=== PATIENT | female | born 1970 | race Caucasian/White ===

== ENCOUNTER 2017-11-19 09:56 | Emergency (ER) | payer OTHER, MEDICAID, SELFPAY ==
[2017-11-19 10:11] VITALS: BP 138/80; PULSE 93; RESP 18; TEMP 37.2; O2SAT 100; BMI 26.2
--- NOTE | 2017-11-19 11:51 | DI.CT.S_ITS ---
PROCEDURE: CT KIDNEY URETER BLADDER (KUB) INDICATIONS: left flank pain TECHNIQUE: Noncontrast 5 mm thick sections acquired from the diaphragms to the symphysis. 5 mm thick coronal and sagittal reformats were then performed. For radiation dose reduction, the following was used: automated exposure control, adjustment of mA and/or kV according to patient size. COMPARISON: None. FINDINGS: Image quality: Excellent. Lung bases: Lung bases are clear. Heart size is normal. Urinary system: Both kidneys are normal in size. No kidney stones. No hydronephrosis or perinephric fat stranding. Both ureters appear non-dilated throughout their expected courses. Bladder wall thickness is normal; no calcified bladder stones. There are scattered surgical clips seen in the pelvis Other solid organs: Liver is normal in size. Gallbladder negative. Pancreas is normal in contours. Spleen is normal in size. No adrenal nodules. Peritoneum and bowel: Unenhanced bowel loops demonstrate normal wall thickness and caliber. No free fluid or air. Appendix is likely surgically absent and there are clips in the right lower quadrant. Nodes and vessels: No retroperitoneal or mesenteric adenopathy by size criteria. Aorta and inferior vena cava are normal in caliber. Abdominal wall: No ventral hernias. Pelvis: No free pelvic fluid. There is poorly defined fullness and possible intraluminal fluid seen within the lower uterine segment or vaginal vault. Please correlate clinically and if needed pelvic ultrasound could be performed. No inguinal hernias or adenopathy. Bones: No suspicious bony lesions. No vertebral body compression fractures. Lower lumbar facet arthropathy. IMPRESSION: No urolithiasis. No evidence of urinary obstruction. Fullness and prominent fluid is seen within the vaginal vault and/or lower uterine segment. Please correlate clinically. If clinically warranted, a pelvic ultrasound could be performed for further assessment No acute abnormality. Dictated by: Yung Gallegos M.D. on 11/19/2017 at 12:11 Approved by: Yung Gallegos M.D. on 11/19/2017 at 12:20
--- NOTE | 2017-11-19 11:53 | ED.FEMALEGU ---
HPI - Female Genitourinary General Chief complaint: Urogenital-Female Stated complaint: KIDNEY INFECTION Time Seen by Provider: 11/19/17 11:44 Source: patient Mode of arrival: ambulatory Limitations: no limitations History of Present Illness HPI Narrative: Patient is a 47-year-old female who presents with all left flank pain. It started last evening and today progressing around to the abdomen. It comes in waves she feels nauseated. She had a kidney stone about 15 years ago this feels similar. She denies any fever or chills. She does have some urinary issues of the last 2 weeks including urinary retention. But she denies any painful or frequent urination MD Complaint: other (Flank pain) Related Data Home Medications Medication Instructions Recorded Confirmed hydrochlorothiazide 25 mg PO QDAY #0 08/24/16 pantoprazole PO QDAY #0 08/24/16 cyclobenzaprine 5 mg PO PRN PRN #0 06/10/17 Previous Rx's Medication Instructions Recorded ciprofloxacin HCl [Cipro] 250 mg PO BID #6 tab 06/10/17 fluconazole [Diflucan] 150 mg PO QDAY #1 tab 06/10/17 Allergies Allergy/AdvReac Type Severity Reaction Status Date / Time Penicillins [PENICILLINS] Allergy Unknown Verified 11/19/17 10:15 Sulfa (Sulfonamide Allergy Unknown Verified 11/19/17 10:15 Antibiotics) [SULFA (SULFONAMIDE ANTIBIOTICS)] Review of Systems Review of Systems GENERAL: Denies chills, fatigue, malaise, fever, sweats, travel HEENT: Denies sinus pain, ear pain, sore throat, difficulty swallowing, neck pain RESPIRATORY: Denies dyspnea, cough, wheezing, hemoptysis, sputum. CARDIOVASCULAR: Denies chest pain, palpitations, orthopnea, edema GASTROINTESTINAL: Denies nausea, vomiting, abdominal pain, diarrhea, constipation, melena. : See HPI MUSCULOSKELETAL: Denies weakness, joint pain, or bony pain SKIN: No rash, no erythema, no pruritus NEUROLOGIC: Denies weakness, dizziness, headache, numbness, change in speech, confusion PSYCHIATRIC: No concerning psychosocial issues. 12 point review of systems is negative except for those stated above and HPI PFSH Medical History Kidney stones (Acute) Social History Smoking Status: Current some day smoker Exam Initial Vital Signs Initial Vital Signs: Vital Signs Temperature 99.0 F 08/30/18 10:11 Pulse Rate 93 H 11/19/17 10:11 Respiratory Rate 18 11/19/17 10:11 Blood Pressure 138/80 H 11/19/17 10:11 Pulse Oximetry 100 11/19/17 10:11 GENERAL: Sitting on gurney appears comfortable HEENT: Head atraumatic,EOMI, pupils reactive, neck is supple CARDIOVASCULAR: Regular rate and rhythm without murmurs, rubs or gallops. RESPIRATORY: Breath sounds equal bilaterally, no wheezes rales or rhonchi. ABDOMEN: Soft, nontender. Normoactive bowel sounds all 4 quadrants. No guarding or rebound. : Mild left CVA tenderness EXTREMITIES: Normal range of motion, no clubbing or edema. Neurovascularly intact NEUROLOGICAL: Alert and oriented x4.Normal gait and speech. SKIN: Warm, dry, no laceration, no petechiae, no rashes or lesions. Course Orders Ordered: ED Orders 11/19/17 11:51 CT kidney ureter bladder (KUB) Stat Discontinued Medications Ketorolac Tromethamine (Toradol) 60 mg IM NOW ONE Stop: 11/19/17 11:52 Last Admin: 11/19/17 12:04 Dose: 60 mg Ondansetron HCl (Zofran Odt) 4 mg PO NOW ONE Stop: 11/19/17 11:52 Last Admin: 11/19/17 12:05 Dose: 4 mg Vital Signs - 8 hr 11/19/17 10:11 11/19/17 12:54 Temperature 99.0 F Pulse Rate 93 H 74 Respiratory Rate 18 16 Blood Pressure 138/80 H Blood Pressure [Left Arm] 114/74 Pulse Oximetry 100 99 MDM - Female Genitourinary Lab Data Attestation: I reviewed the patient's lab results. POC negative for blood, nitrates and leukocytes and protein POC hCG negative Imaging Data CT scan - abdomen: Radiologist's impression: PROCEDURE: CT KIDNEY URETER BLADDER (KUB) INDICATIONS: left flank pain TECHNIQUE: Noncontrast 5 mm thick sections acquired from the diaphragms to the symphysis. 5 mm thick coronal and sagittal reformats were then performed. For radiation dose reduction, the following was used: automated exposure control, adjustment of mA and/or kV according to patient size. COMPARISON: None. FINDINGS: Image quality: Excellent. Lung bases: Lung bases are clear. Heart size is normal. Urinary system: Both kidneys are normal in size. No kidney stones. No hydronephrosis or perinephric fat stranding. Both ureters appear non-dilated throughout their expected courses. Bladder wall thickness is normal; no calcified bladder stones. There are scattered surgical clips seen in the pelvis Other solid organs: Liver is normal in size. Gallbladder negative. Pancreas is normal in contours. Spleen is normal in size. No adrenal nodules. Peritoneum and bowel: Unenhanced bowel loops demonstrate normal wall thickness and caliber. No free fluid or air. Appendix is likely surgically absent and there are clips in the right lower quadrant. Nodes and vessels: No retroperitoneal or mesenteric adenopathy by size criteria. Aorta and inferior vena cava are normal in caliber. Abdominal wall: No ventral hernias. Pelvis: No free pelvic fluid. There is poorly defined fullness and possible intraluminal fluid seen within the lower uterine segment or vaginal vault. Please correlate clinically and if needed pelvic ultrasound could be performed. No inguinal hernias or adenopathy. Bones: No suspicious bony lesions. No vertebral body compression fractures. Lower lumbar facet arthropathy. IMPRESSION: No urolithiasis. No evidence of urinary obstruction. Fullness and prominent fluid is seen within the vaginal vault and/or lower uterine segment. Please correlate clinically. If clinically warranted, a pelvic ultrasound could be performed for further assessment No acute abnormality. Dictated by: Yung Gallegos M.D. on 11/19/2017 at 12:11 MDM Narrative Medical decision making narrative: Discussed with patient blood work. At this time she would like to wait and see how this goes. She denies any injury I discussed all findings with the patient, Education has been performed regarding treatment plan, diagnosis, warning signs and symptoms and all concerns have been addressed. Verbally agree with and understood all of the above. Discharge Plan Departure Patient Disposition: Home Clinical Impression: Acute left flank pain Discharge Date/Time: 11/19/17 12:56 Interventions: ED Discharge Assessment Last Done: 11/19/17 12:57 Instructions: DI for Flank Pain Activity Restrictions/Additional Instructions: *You have been diagnosed with flank pain *What to do: CT scan does not show any kidney stone urine does not show any infection heating pad increase activity as tolerated *Continue to take medications as directed Motrin, Tylenol as directed *Follow up with your primary care provider in 2-3 days *Return to ER if you should have fever, worsening pain or any new, worsening or concerning symptoms Prescriptions: No Action pantoprazole 40 mg Tablet,Delayed Release (Dr/Ec) PO QDAY Qty: 0 RF: 0 hydrochlorothiazide 12.5 MG capsule 25 mg PO QDAY Qty: 0 RF: 0 cyclobenzaprine 5 MG tablet 5 mg PO PRN PRNQty: 0 RF: 0 fluconazole [Diflucan] 150 MG tablet 150 mg PO QDAY Qty: 1 RF: 0 ciprofloxacin HCl [Cipro] 250 MG tablet 250 mg PO BID Qty: 6 RF: 0 Referrals: Kimberlee Cuenca ARNP [Primary Care Provider] -
[2017-11-19] MEDS: KETOROLAC 60 MG/2 ML VIAL IM (12:04)
[2017-11-19] MEDS: ONDANSETRON 4 MG ODT PO (12:05)
[2017-11-19 12:54] VITALS: BP 114/74; PULSE 74; RESP 16; O2SAT 99
== END 2017-11-19 12:56 | disposition home or self-care (01) ==
PROVIDERS: Emergency Provider Emergency Medicine; PCP Nurse Practitioner Family
DX: R10.9 Unspecified abdominal pain (principal)
CPT/HCPCS: 74176; 81003; 81025; 96372; 99282; 99284; J1885

== ENCOUNTER → 2018-02-04 14:31 | Outpatient (REF) | payer OTHER, MEDICAID, SELFPAY | LOC: LAB 14:31 | PROVIDERS: PCP Nurse Practitioner Family; Visit Provider Otolaryngology | DX: J32.4 Chronic pansinusitis (principal) | CPT/HCPCS: 87070; 87077; 87147; 87186 ==

== ENCOUNTER 2018-03-15 05:43 | Day surgery (SDC) | payer OTHER, MEDICAID, SELFPAY ==
[2018-03-10 15:19] VITALS: BMI 28.4
[2018-03-15] VITALS (9 sets, daily range): BP systolic 138–161; BP diastolic 79–93; PULSE 72–84; RESP 12–20; TEMP 35.8–36.2; O2SAT 94–97; BMI 28.4
[2018-03-15] MEDS: LACTATED RINGERS 1,000 ML 42 ML IV ×2 (07:19→09:09)
[2018-03-15] MEDS: SCOPOLAMINE 1 PATCH TOP (07:37)
[2018-03-15] MEDS: CLINDAMYCIN 600 MG/50 ML PIGGYBACK 50 MG IV (07:56)
--- NOTE | 2018-03-15 08:37 | SUR.OPER ---
Lateral on padded OR bed with yang bag positioner, head on pillow, gel axillary roll in place, bottom leg bent with gel pad under knee to foot, upper leg straight and supported with pillows. Operative arm secured in shoulder positioning suspension device. non-operative arm secured on padded arm board. Safety belt at hip, tape over blanket securing lower legs.
[2018-03-15] MEDS: SODIUM CHLORIDE IRRIG SOLUTION 3,000 ML, EPINEPHrine 1 MG IRR (08:46)
[2018-03-15] MEDS: BUPIVACAINE 0.5% W/ EPI (PF) VIAL 30 ML INJ (08:46)
--- NOTE | 2018-03-15 09:12 | PM.PREOP ---
Pre-operative Note Interval Note Pre-op Check: Yes History & Physical Reviewed by Physician and Yes Exam Performed Changes: No
--- NOTE | 2018-03-15 09:23 | P.OP_ITS ---
Operative Date/Time/Diagnoses Date of procedure: 03/15/18 Time of procedure: 09:10 Pre-op diagnosis: 1. Right shoulder rotator cuff tear 2. Right shoulder acromioclavicular osteoarthritis 3. Right shoulder biceps tendinitis Post-op diagnosis: same (No biceps tendinitis) Procedure & Clinicians Procedure: 1. Arthroscopic rotator cuff repair, right shoulder 2. Arthroscopic distal clavicle excision, right shoulder 3. Arthroscopic subacromial decompression, right shoulder Same procedure as scheduled: Yes Indications: The patient is a 47-year-old woman who has had right shoulder pain that has persisted despite nonoperative measures. After discussion of the risks benefits and alternative she has agreed to proceed. Risks discussed included but were not limited to: Failure to improve, failure to remain repaired, stiffness, infection, nerve damage, deep venous thrombosis, pulmonary embolism, stroke, myocardial infarction, permanent paralysis and . Surgeon: Tee Garza Outboard Motor Tester: Sherry Santos'Brien Click Yes if Unassisted: No Anesthesia Type: General, Peripheral nerve block and Local Operative Notes Findings: 1. Normal glenohumeral cartilage 2. Normal glenoid except for a type 1 SLAP lesion 3. Normal glenohumeral ligaments 4. Subscapularis notable for mild fraying at the insertion but intact footprint 5. Biceps intact appearing 6. Supraspinatus notable for partial-thickness undersurface tearing 7. Intact infraspinatus 8. Normal axillary pouch 9. Fraying and thinning of the bursal rotator cuff overlying the undersurface supraspinatus tear 10. Type 2 acromion with impingement lesion 11. Considerable arthritic change with undersurface osteophyte from the acromioclavicular joint 12. Exam under anesthesia notable for full range of motion and no pathologic laxity. Closure Type: primary Specimen(s): none sent Implants & Drains: One Mitek Healix Advance BR 5.5 mm double threaded anchor Applied: implant(s) Estimated Blood Loss (mL): 5 Blood products transfused: none Procedure in detail: The patient was seen in the preoperative area where she identified her right shoulder as the operative site and this was marked with my initials. She received preoperative antibiotics with clindamycin due to a penicillin allergy and was taken to the operating room and placed on the operating room table in the supine position. She underwent the induction of an interscalene block for postoperative pain control. She then underwent a general anesthetic. Her right arm was examined under anesthesia with the result given above. She was then repositioned in the left lateral decubitus position with an axillary roll and padding for all pressure points. She was stabilized in this position using the beanbag. The right arm was prepared from fingertips to the base of the neck with ChloraPrep in the usual fashion drape through sterile drapes. She was placed in 10 lb of balanced skin suspension. Subcutaneous landmarks were outlined on the skin with a marking pen and portal sites selected. Posterior portal was created and the arthroscope inserted into the glenohumeral joint. Diagnostic arthroscopy ensued with the result given above. An anterior portal was created for instrumentation. A shaver was inserted and used to debride the type 1 slap lesion and the undersurface rotator cuff tear as well as the partial thickness tearing of the subscapularis. A percutaneously-placed needle was then put through the subscapularis damage and a suture placed for identification. The arthroscope was then withdrawn and placed in the subacromial space. The suture was identified and the rotator cuff expected in this area and found to be partially torn on the bursal surface as well. As result I elected to complete the tear and repair it. A lateral portal was created for instrumentation and a shaver inserted and used to complete the tear. The type 2 acromion was converted to a type 1 using the cutting block technique due to the impingement lesion there. The distal clavicle was excised due to the under hanging osteophyte and arthritis in this region. 8-10 mm of bone were removed. An accessory superolateral portal was then created and an anchor placed in the prepared greater tuberosity. The 2 sutures from this anchor were placed in simple suture fashion across the 1 cm tear and tied to complete the procedure. All arthroscopic equipment was then removed. The wounds were closed with 4 0 Monocryl and Steri-Strips. A total of 20 mL of 0.5% Marcaine were injected in the subacromial space and subcutaneous tissues for postoperative pain control. Dressings of sterile 4x4s, an ABD and adhesive dressings were applied. The patient was then transported to the recovery room in good condition having tolerated the procedure well. Complications: none Condition: stable Disposition: PACU Plan for aftercare: The patient will be maintained on a standard small size rotator cuff tear protocol with passive range of motion for 6 weeks. She will be discharged today.
[2018-03-15] MEDS: MEPERIDINE 25 MG/ML SYRINGE IV (09:44)
--- NOTE | 2018-03-15 09:46 | SUR.PHASEI ---
Meperidine given for shivering.
== END 2018-03-15 10:28 | disposition home or self-care (01) ==
PROVIDERS: Visit Provider Orthopaedic Surgery
PROC: (CPT 29827; principal; 2018-03-15 07:45)
DX: M75.111 Incomplete rotator cuff tear or rupture of right shoulder, not specified as traumatic (principal); M75.41 Impingement syndrome of right shoulder; S43.431A Superior glenoid labrum lesion of right shoulder, initial encounter; G89.18 Other acute postprocedural pain; F17.210 Nicotine dependence, cigarettes, uncomplicated; F10.21 Alcohol dependence, in remission; F15.11 Other stimulant abuse, in remission; K21.9 Gastro-esophageal reflux disease without esophagitis; I10 Essential (primary) hypertension; F43.10 Post-traumatic stress disorder, unspecified
CPT/HCPCS: 29827; 29826; 29824; 64415; J0171; J1100; J2175; J2250; J2405; J2704; J3010

== ENCOUNTER → 2020-11-20 10:54 | Outpatient (CLI) | payer OTHER, MEDICAID, SELFPAY ==
--- NOTE | 2020-11-20 10:56 | DI.RAD.S_ITS ---
PROCEDURE: XR CHEST 2V INDICATIONS: weight loss, prev smoker TECHNIQUE: 2 views of the chest were acquired. COMPARISON: None. FINDINGS: Surgical changes and devices: None. Lungs and pleura: Lungs are clear. No pleural effusions or pneumothorax. Hyperinflation and chronic interstitial changes noted. Mediastinum: Mediastinal contours are normal. Heart size is normal. Bones and chest wall: No suspicious bony abnormalities. Soft tissues appear unremarkable. IMPRESSION: Pulmonary hyperinflation and chronic interstitial changes Approved by: Eduar Hanna M.D. on 11/20/2020 at 12:27
[2020-11-20 12:00] LABS: Add Manual Diff / Slide Review NO; Basophils Absolute Auto 0 /uL (0-100); Basophils Percent Auto 0.7 % (0-2); Eosinophils Absolute Auto 100 /uL (0-450); Eosinophils Percent Auto 1.5 % (2-4); Hematocrit 42.4 % (36-46); Hemoglobin 14.3 g/dL (12.0-16.0); Lymphocytes Absolute Auto 2100 /uL (1100-4500); Lymphocytes Percent Auto 44.2 % (25-40); Mean Corpuscular HGB Conc 33.8 % (30-36); Mean Corpuscular Hemoglobin 31.1 PG (26-34); Mean Corpuscular Volume 91.8 fL (80-100); Monocytes Absolute Auto 400 /uL (0-900); Monocytes Percent Auto 8.1 % (3-14); Neutrophils Absolute Auto 2200 /uL (1500-7000); Neutrophils Percent Auto 45.5 % (50-75); Platelet Count 214 X10^3/uL (150-400); Red Blood Cell Count 4.62 X10^6/uL (4.0-5.2); Red Cell Distribution Width 14.4 % (11.6-14.8); White Blood Cell Count 4.9 X10^3/uL (4.5-11.0)
[2020-11-20 12:14] LABS: Alanine Aminotransferase 14 IU/L (<35); Albumin 4.8 g/dL (3.5-5.0); Albumin Globulin Ratio 1.8 (1.0-2.8); Alkaline Phosphatase 78 U/L (38-126); Aspartate Aminotransferase 23 IU/L (14-36); BUN Creatinine Ratio 21.8 (6-22); Bilirubin Total 0.6 mg/dL (0.2-1.3); Blood Urea Nitrogen 17 mg/dL (7-17); C-Reactive Protein Quant < 0.5 mg/dL (<1.0); Calcium 9.8 mg/dL (8.4-10.2); Carbon Dioxide 23 mmol/L (22-32); Chloride 100 mmol/L (98-107); Estimated Glomerular Filt Rate > 60.0 mL/min (>60); Globulin 2.7 g/dL (1.7-4.1); Glucose 88 mg/dL (70-100); HEMOLYSIS < 15 (0-50); Sodium 133 mmol/L (137-145); Total Protein 7.5 g/dL (6.3-8.2)
[2020-11-20 12:20] LABS: Erythrocyte Sedimentation Rate 7 MM/HR (0-20)
[2020-11-20 12:51] LABS: Hepatitis B Surface Antigen NEGATIVE s/c (NEGATIVE)
[2020-11-20 13:05] LABS: HIV 1 & 2 Ab/Ag 4th Gen Combo NEGATIVE (NEGATIVE); Hep C Virus Ab w/Reflex Quant NEGATIVE s/c (NEGATIVE)
== END ==
PROVIDERS: PCP Nurse Practitioner Family; Referring Provider Nurse Practitioner Family; Visit Provider Nurse Practitioner Family
DX: Z00.00 Encounter for general adult medical examination without abnormal findings (principal); R63.4 Abnormal weight loss; Z87.891 Personal history of nicotine dependence; R10.10 Upper abdominal pain, unspecified; G89.29 Other chronic pain; E04.1 Nontoxic single thyroid nodule; Z87.898 Personal history of other specified conditions
CPT/HCPCS: 36415; 71046; 80053; 84443; 85025; 85651; 86140; 86803; 87340; 87389

== ENCOUNTER → 2020-12-07 10:48 | Outpatient (CLI) | payer OTHER, MEDICAID, SELFPAY ==
--- NOTE | 2020-12-07 10:50 | DI.US.S_ITS ---
PROCEDURE: US THYROID INDICATIONS: THYROID NODULES TECHNIQUE: Real-time scanning was performed of the thyroid gland, with image documentation. COMPARISON: None. FINDINGS: Right: Thyroid lobe measures 5.5 x 1.7 x 1.4 cm, and is homogeneous in echotexture. Left: Thyroid lobe measures 5.3 x 1.7 x 1.3 cm, and is homogenous in echotexture. Sub 5 mm left spong form thyroid nodule. Isthmus: 2.4 mm thick. Nodule number: 1 Location: Right mid Size: 0.5 x 0.5 x 0.5 cm. Composition: Predominantly solid Echogenicity: Hypoechoic Shape: wider than tall. Margins: Smooth Echogenic foci: None Total points: 4 ACR TI-RADS category: Moderately suspicious Nodule number: 2 Location: Right inferior Size: 1.0 x 0.9 x 0.9 cm. Composition: Predominantly solid Echogenicity: Hypoechoic Shape: wider than tall. Margins: Smooth Echogenic foci: None Total points: 4 ACR TI-RADS category: Moderately suspicious IMPRESSION: Bilateral thyroid nodules as above. Recommend continued followup ultrasound as detailed below. ACR TI-RADS definitions and recommendations: TI-RADS 1 (benign): 0 points. FNA not needed. TI-RADS 2 (not suspicious): 2 points. FNA not needed. TI-RADS 3 (mildly suspicious): 3 points. * FNA if 2.5 cm or larger, follow up if 1.5 cm or larger (at 1, 3, and 5 years). TI-RADS 4 (moderately suspicious): 4-6 points. * FNA if 1.5 cm or larger, follow up if 1 cm or larger (at 1, 2, 3, and 5 years). TI-RADS 5 (highly suspicious): 7 points or more. * FNA if 1 cm or larger, follow up if 0.5 cm or larger (every year for 5 years). Dictated by: Ag OLIVIA Interpreted: Tonie Castro MD on 12/11/2020 at 12:06 Transcribed by: DELMAR on 12/11/2020 at 12:09 Approved by: Tonie Castro M.D. on 12/11/2020 at 13:30
--- NOTE | 2020-12-07 10:50 | DI.CT.S_ITS ---
PROCEDURE: CT CHEST WO/W CON COMPARISON: [facility], CR, XR CHEST 2V, 11/20/2020, 10:54. INDICATIONS: hyperinflation, interstitial changes FINDINGS: Lungs/pleural: Right middle lobe pulmonary nodule measuring 0.3 cm, (190). Small calcified granuloma. No mass. No acute airspace opacity. Mild paraseptal and centrilobular emphysema. No air trapping. No pleural effusion. No pneumothorax. Mediastinum: No enlarged lymph nodes. No aortic aneurysm. The central pulmonary arteries are clear. Heart size is within normal limits. No pericardial effusion. Chest wall/bones: No suspicious lesion. No axillary adenopathy. No supraclavicular adenopathy. Tiny left thyroid nodule. Visualized abdomen: No significant abnormality. IMPRESSION: 1. Mild paraseptal/centrilobular emphysema. 2. No acute airspace opacity. Dictated by: Corky Carty M.D. on 12/07/2020 at 10:59 Approved by: Corky Carty M.D. on 12/07/2020 at 11:08
== END ==
PROVIDERS: PCP Nurse Practitioner Family; Referring Provider Nurse Practitioner Family; Visit Provider Nurse Practitioner Family
DX: J84.9 Interstitial pulmonary disease, unspecified (principal); E04.1 Nontoxic single thyroid nodule
CPT/HCPCS: 71270; 76536; Q9967

== ENCOUNTER → 2020-12-20 10:22 | Outpatient (CLI) | payer OTHER, MEDICAID, SELFPAY ==
[2020-12-20 10:59] LABS: Add Manual Diff / Slide Review NO; Basophils Absolute Auto 0 /uL (0-100); Basophils Percent Auto 0.9 % (0-2); Eosinophils Absolute Auto 300 /uL (0-450); Eosinophils Percent Auto 6.9 % (2-4); Hematocrit 38.8 % (36-46); Lymphocytes Absolute Auto 1900 /uL (1100-4500); Lymphocytes Percent Auto 42.8 % (25-40); Mean Corpuscular HGB Conc 33.4 % (30-36); Mean Corpuscular Volume 92.8 fL (80-100); Monocytes Absolute Auto 300 /uL (0-900); Monocytes Percent Auto 6.1 % (3-14); Neutrophils Absolute Auto 2000 /uL (1500-7000); Neutrophils Percent Auto 43.3 % (50-75); Platelet Count 226 X10^3/uL (150-400); Red Blood Cell Count 4.17 X10^6/uL (4.0-5.2); Red Cell Distribution Width 14.7 % (11.6-14.8); White Blood Cell Count 4.5 X10^3/uL (4.5-11.0)
[2020-12-20 11:10] LABS: Alanine Aminotransferase 19 IU/L (<35); Albumin 4.3 g/dL (3.5-5.0); Albumin Globulin Ratio 1.8 (1.0-2.8); Alkaline Phosphatase 64 U/L (38-126); Aspartate Aminotransferase 25 IU/L (14-36); BUN Creatinine Ratio 21.7 (6-22); Bilirubin Total 0.5 mg/dL (0.2-1.3); Blood Urea Nitrogen 13 mg/dL (7-17); Calcium 9.7 mg/dL (8.4-10.2); Carbon Dioxide 29 mmol/L (22-32); Chloride 104 mmol/L (98-107); Estimated Glomerular Filt Rate > 60.0 mL/min (>60); Globulin 2.4 g/dL (1.7-4.1); Glucose 98 mg/dL (70-100); HEMOLYSIS 18 (0-50); Potassium 4.8 mmol/L (3.4-5.1); Sodium 138 mmol/L (137-145); Total Protein 6.7 g/dL (6.3-8.2)
[2020-12-20 11:43] LABS: TSH w/ Reflex to FT4 1.39 uIU/mL (0.47-4.68)
== END ==
PROVIDERS: PCP Nurse Practitioner Family; Referring Provider Nurse Practitioner Family; Visit Provider Nurse Practitioner Family
DX: R07.9 Chest pain, unspecified (principal)
CPT/HCPCS: 36415; 80053; 83735; 84443; 85025

== ENCOUNTER 2020-12-27 15:35 | Observation (INO) | payer OTHER, MEDICAID, SELFPAY ==
[2020-12-27] VITALS (11 sets, daily range): BP systolic 108–153; BP diastolic 59–76; PULSE 62–92; RESP 12–39; TEMP 36.2–36.4; O2SAT 95–100; BMI 20.9
--- NOTE | 2020-12-27 15:56 | DI.RAD.S_ITS ---
PROCEDURE: XR CHEST 1V INDICATIONS: Chest pain TECHNIQUE: One view of the chest was acquired. COMPARISON: [facility], CR, XR CHEST 2V, 11/20/2020, 10:54. FINDINGS: Surgical changes and devices: None. Lungs and pleura: No consolidation, pleural effusions or pneumothorax. Mediastinum: Mediastinal contours appear normal. Heart size is normal. Bones and chest wall: Minimal contour irregularity of the right 9th rib, which may represent a fracture. Overlying soft tissues appear unremarkable. IMPRESSION: 1. No acute cardiopulmonary abnormality. 2. Minimal contour irregularity of the right 9th rib, which may reflect a fracture. Dictated by: Alden Chery M.D. on 12/27/2020 at 16:02 Approved by: Alden Chery M.D. on 12/27/2020 at 16:05
[2020-12-27 16:01] LABS: Add Manual Diff / Slide Review NO; Basophils Absolute Auto 0 /uL (0-100); Basophils Percent Auto 0.9 % (0-2); Eosinophils Absolute Auto 200 /uL (0-450); Eosinophils Percent Auto 3.7 % (2-4); Hematocrit 40.3 % (36-46); Hemoglobin 13.4 g/dL (12.0-16.0); Lymphocytes Absolute Auto 2400 /uL (1100-4500); Lymphocytes Percent Auto 46.5 % (25-40); Mean Corpuscular HGB Conc 33.3 % (30-36); Mean Corpuscular Hemoglobin 30.5 PG (26-34); Mean Corpuscular Volume 91.8 fL (80-100); Monocytes Absolute Auto 300 /uL (0-900); Monocytes Percent Auto 6.2 % (3-14); Neutrophils Absolute Auto 2300 /uL (1500-7000); Neutrophils Percent Auto 42.7 % (50-75); Platelet Count 247 X10^3/uL (150-400); Red Blood Cell Count 4.38 X10^6/uL (4.0-5.2); Red Cell Distribution Width 14.4 % (11.6-14.8); White Blood Cell Count 5.3 X10^3/uL (4.5-11.0)
[2020-12-27 16:15] LABS: Alanine Aminotransferase 20 IU/L (<35); Albumin 4.9 g/dL (3.5-5.0); Albumin Globulin Ratio 1.7 (1.0-2.8); Alkaline Phosphatase 66 U/L (38-126); Aspartate Aminotransferase 25 IU/L (14-36); BUN Creatinine Ratio 37.2 (6-22); Bilirubin Total 0.5 mg/dL (0.2-1.3); Blood Urea Nitrogen 29 mg/dL (7-17); Calcium 10.2 mg/dL (8.4-10.2); Carbon Dioxide 30 mmol/L (22-32); Chloride 98 mmol/L (98-107); Creatine Kinase 46 U/L (30-135); Estimated Glomerular Filt Rate > 60.0 mL/min (>60); Globulin 2.9 g/dL (1.7-4.1); Glucose 103 mg/dL (70-100); HEMOLYSIS < 15 (0-50); Lipase 160 U/L (23-300); Sodium 138 mmol/L (137-145); Total Protein 7.8 g/dL (6.3-8.2)
[2020-12-27 16:26] LABS: Troponin I < 0.012 ng/mL (0.01-0.034)
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
[2020-12-27 19:15] LABS: Troponin I < 0.012 ng/mL (0.01-0.034)
[2020-12-27 19:16] LABS: D Dimer < 200 ng/mL (<230)
[2020-12-27] MEDS: ASPIRIN 81 MG CHEW TAB 324 MG PO (19:37)
[2020-12-27] MEDS: NITROGLYCERIN 0.4 MG SL TAB SL ×2 (19:37→20:00)
--- NOTE | 2020-12-27 19:38 | PC.NURSE ---
Patient refused swab for COVID. Provider aware.
--- NOTE | 2020-12-27 20:00 | PC.NURSE ---
After 1st dose of nitro patient reports no relief in symptoms, still 4/10 chest pressure and BP remains elevated at 140sys. After second dose, patient's chest pain immediately went away and reports the heaviness she had been feeling is now gone. BP is 115/56.
--- NOTE | 2020-12-27 20:23 | DI.NM.S_ITS ---
PROCEDURE: NM EXERCISE TREADMILL NON NUC COMPARISON: None. INDICATIONS: CP FINDINGS: Resting ECG sinus rhythm, subtle OH depressions throughout. En protocol 3 minutes, 30 seconds; 89% peak predicted heart rate, 3.7 METS; +52% GHAZAL. Patient started the test with 2 out of 10 chest pressure however by the end of exercise discomfort increased to 8 out of 10 and she jumped off of the treadmill. Stress ECG with sinus tachycardia, isolated PVC, no ST segment changes. IMPRESSION: 1. No evidence of exercise-induced ST segment changes. 2. Exercise-induced chest pain. 3. Normal blood pressure response to exercise. 4. Very limited exercise capacity. 5. Test originally ordered as an exercise nuclear stress test however given that patient is off of the treadmill, the isotope was unable to be given at peak exercise so no nuclear imaging was obtained. Dictated by: Mary Hoskins D.O. on 12/28/2020 at 14:35 Approved by: Mary Hoskins M.D. on 12/28/2020 at 14:42
[2020-12-27 20:42] LABS: COVID19 - ADMIT (NP swab/PCR) Negative (Negative)
[2020-12-27 21:24] LABS: Cholesterol 194 mg/dL (140-199); HDL Cholesterol 54 mg/dL (40-60); LDL Cholesterol Calculated 125 mg/dL (<100); Triglycerides 75 mg/dL (35-150)
[2020-12-27 21:34] LABS: NT-proBNP (BNP-Adult 18+) 44 pg/mL (<125)
[2020-12-27 21:37] LABS: Troponin I < 0.012 ng/mL (0.01-0.034)
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
[2020-12-28] VITALS (13 sets, daily range): BP systolic 117–149; BP diastolic 63–78; PULSE 52–81; RESP 14–19; TEMP 36.1–36.5; O2SAT 95–99
[2020-12-28 02:06] LABS: TSH w/ Reflex to FT4 1.95 uIU/mL (0.47-4.68)
[2020-12-28 05:57] LABS: PTT Partial Thromboplastin Tim 35 SECONDS (26.4-36.2)
[2020-12-28 06:10] LABS: Troponin I < 0.012 ng/mL (0.01-0.034)
[2020-12-28] MEDS: HEPARIN 5,000 UNIT/ML VIAL 5000 UNIT SUBCUT ×2 (08:34→20:23)
--- NOTE | 2020-12-28 11:21 | DI.ECHO.S_ITS ---
[facility] +---------+ : : [address] : : : : [id number] : : : : Phone: [phone]+ Echocardiogram Report + + :Name: DORA GOEL Study Date: 12/28/2020 Height: 67 in : :[facility] ReadingLocation: Weight: 134 lb: : Gender: Female BSA: 1.7 m2 : :: 1970 Age: 50 yrs : :Reason For Study: Chest pain, SOB : : Performed By: MARK VALDEZ : :Referring: ISIDRA DAMON : + + Interpretation Summary 1) Normal left ventricular thickness, size, wall motion, and systolic function (EF 60-65%). 2) Normal right ventricular size and function. 3) No significant valvular abnormalities. 4) There is a trivial to small pericardial effusion noted next to the right atrium and right ventricle. 5) No prior Echo available for comparison. Procedure: A two-dimensional transthoracic echocardiogram with color flow and Doppler was performed. The study quality was technically difficult. The apical views were difficult to obtain and are suboptimal in quality. Images from the parasternal window were difficult to obtain and are suboptimal in quality. Most of the acoustic windows were suboptimal, but the best imaging was obtained from the subcostal window. There is no prior echocardiogram noted for this patient. The patient was in normal sinus rhythm during the exam. Left Ventricle: The left ventricle is normal in size and wall thickness. The ejection fraction is estimated to be 60-65%. Left ventricular systolic function appears normal without focal wall motion abnormalities. Right Ventricle: The right ventricle is normal in size and function. Atria: The left atrium is not well visualized. The left atrium grossly appears normal in size. Right atrial size is normal. There is no Doppler evidence for an interatrial shunt. Mitral Valve: The mitral valve is normal in structure and function. There is no mitral regurgitation noted. Aortic Valve: The aortic valve is trileaflet. The aortic valve opens well. There is no aortic valve stenosis. No aortic regurgitation is present. Tricuspid Valve: The tricuspid valve is normal. There is trace tricuspid regurgitation. The right ventricular systolic pressure is estimated to be at least 20 mmHg based on an estimated right atrial pressure of 3 mm Hg. Pulmonic Valve: The pulmonic valve is not well seen, but is grossly normal. Great Vessels: The aortic root is normal size. The ascending aorta could not be visualized. The aortic arch is normal in size. The IVC is of normal diameter and collapses greater than 50% with a sniff. This suggests a low right atrial pressure of 3 mm Hg. Pericardium/ Pleura There is an anterior echo-free space consistent with a fat pad. There is a trivial to small pericardial effusion noted. There is no pleural effusion. MMode/2D Measurements & Calculations LVIDd: 3.8 cm LVOT diam: 1.8 cm LVIDs: 2.3 cm Ao root diam: 3.2 cm FS: 38.1 % IVSd: 0.59 cm LVPWd: 0.96 cm LV masterson. diameter/BSA (cm/m^2): 2.2 LV sys. diameter/BSA (cm/m^2): 1.4 LA A4 area: 9.6 cm2 RA long axis: 4.1 cm LA length (vol): 3.4 cm RA area: 10.9 cm2 RA vol: 24.4 ml RA : 14.3 ml/m2 RVD1 (basal): 3.7 cm TAPSE: 2.1 cm Doppler Measurements & Calculations Ao V2 max: 93.6 cm/sec LVOT Max Cr: 83.9 cm/sec Ao V2 mean: 60.4 cm/sec LV V1 max P.8 mmHg Ao max P.5 mmHg LV V1 VTI: 15.6 cm Ao mean P.6 mmHg SANDRA(I,D): 2.2 cm2 Ao V2 VTI: 18.1 cm SANDRA(V,D): 2.3 cm2 sev ratio: 0.86 SANDRA indexed to BSA (cm^2/m^2): 1.3 MV E max cr: 89.7 cm/sec TR max cr: 205.4 cm/sec MV A max cr: 56.3 cm/sec TR max P.9 mmHg MV E/A: 1.6 PA V2 max: 84.1 cm/sec Med Peak E' Cr: 9.6 cm/sec PA V2 mean: 65.3 cm/sec E/E' med: 9.4 PA mean P.8 mmHg Lat Peak E' Cr: 9.1 cm/sec PA pr(Accel): 13.5 mmHg E/E' lat: 9.9 E/e' average: 9.6 MV dec time: 0.16 sec SV(LVOT): 40.1 ml Reading Physician:12:48 PM
--- NOTE | 2020-12-28 12:39 | PC.NURSE ---
Day shift: Pt off unit for stress test at approx 1240.
--- NOTE | 2020-12-28 13:24 | CM.IDA ---
Initial DCP Assessment Note Pt is a 50 yo female, resident of [place], arrives with SOB and chest pain. PMH significant for: former smoker, former polysubstance abuse (cocaine, methamphetamine, opiates), alcohol abuse X 30yrs, been clean and sober for 2 years, tobacco cessation for 2 months, and COPD PCP: Lilliam Rocha Payer: [employer] Reviewed chart, met w/patient and her SO Aleksandr, introduced role. Patient has gotten her echo and awaiting stress test. 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 No needs expected from DC planning team although will remain available in case this changes before DC. RONAN Montez Discharge Planning/Care Management CM Discharge Assessment Start: 12/28/20 13:20 Freq: Status: Active Protocol: Document 12/28/20 13:20 VALERIE (Rec: 12/28/20 13:24 VALERIE [id number]) Discharge Planning Assessment Assigned Heel Coverer RONAN Bautista DPOA/Assigned Designee Name Aleksandr Jaeger S.Tom. Contact Information [phone] Advance Directives? Yes Advance Directives on File No History Provided By Patient,Significant Other Prior Living Arrangements House Household Members significant other Type of transporation used prior to Drives own vehicle admit Independent with ADL's Yes Is patient alert and oriented? Yes Barriers to Discharge No Discharge Plan Home Transportation Arrangement S.O. Aleksandr Carmona Updated in Patient Room with Yes name and ext. # of Heel Coverer
--- NOTE | 2020-12-28 14:24 | PC.NURSE ---
Day shift: Pt back on AC unit at approx 1345. Denies any chest pain at rest. RA 98%. OK per Dr Castellanos for sips and chips. Pt to stay NPO (no food) for now. wants to hear from cardiology first. VS remain WNL. Pt stated I'm happy that things are getting figured out for me.
[2020-12-28] MEDS: IBUPROFEN 600 MG TABLET PO ×2 (16:12→20:23)
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
[2020-12-28] MEDS: COLCHICINE 0.6 MG TABLET PO (20:23)
[2020-12-29] VITALS (10 sets, daily range): BP systolic 101–118; BP diastolic 70–74; PULSE 58–85; RESP 12–16; TEMP 35.8–36.7; O2SAT 94–98
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
[2020-12-29] MEDS: HEPARIN 5,000 UNIT/ML VIAL 5000 UNIT SUBCUT (10:22)
[2020-12-29] MEDS: COLCHICINE 0.6 MG TABLET PO (12:44)
[2020-12-29] MEDS: IBUPROFEN 600 MG TABLET PO (12:44)
== END 2020-12-29 13:25 | disposition home or self-care (01) ==
LOC: ED 18:08 → AC 20:17
PROVIDERS: Emergency Medicine; Admitting Provider Nurse Practitioner Family; Emergency Provider Emergency Medicine; PCP Nurse Practitioner Family; Referring Provider Nurse Practitioner Family; Visit Provider Nurse Practitioner Family
DX: I30.9 Acute pericarditis, unspecified (principal); E46 Unspecified protein-calorie malnutrition; J44.9 Chronic obstructive pulmonary disease, unspecified; F10.11 Alcohol abuse, in remission; F14.21 Cocaine dependence, in remission; F11.21 Opioid dependence, in remission; F15.21 Other stimulant dependence, in remission; Z87.891 Personal history of nicotine dependence; Z68.21 Body mass index [BMI] 21.0-21.9, adult; Z20.822 Contact with and (suspected) exposure to COVID-19
CPT/HCPCS: 36415; 71045; 80053; 80061; 82550; 83690; 83880; 84443; 84484; 85025; 85379; 85730; 87635; 93005; 93017; 93306; 94760; 96372; 99284; C9803; G0378; J1644

== ENCOUNTER 2021-04-30 22:40 | Emergency (ER) | payer OTHER, MEDICAID, SELFPAY ==
[2020-12-27 22:36] VITALS: BMI 20.9
[2021-04-30 22:44] VITALS: BP 179/93; PULSE 66; RESP 18; TEMP 36.6; O2SAT 100; BMI 19.5
[2021-04-30 22:56] LABS: Appearance Urine UA CLEAR; Bilirubin Urine UA NEGATIVE (NEGATIVE); Color Urine UA YELLOW; Glucose Urine UA NEGATIVE (Negative); Ketones Urine UA TRACE (NEGATIVE); Leukocyte Esterase Urine UA NEGATIVE (NEGATIVE); Nitrite Urine UA NEGATIVE (Negative); Occult Blood Urine UA NEGATIVE (Negative); Protein Urine UA NEGATIVE (Negative); Specific Gravity Urine UA <=1.005 (1.000-1.035); Urobilinogen Urine UA 0.2 E.U./dL (0.2)
[2021-04-30 23:08] LABS: pH Urine UA 6.5 (4.5-8.0)
[2021-04-30 23:09] LABS: Bacteria Urine None Seen; Culture Indicated Urine Cult Not Indicated; RBC Urine None Seen (0-5/HPF); Urine Comments Microscopic Normal; WBC Urine None Seen (0-5/HPF)
[2021-05-01 05:27] LABS: Add Manual Diff / Slide Review NO; Basophils Absolute Auto 0 /uL (0-100); Basophils Percent Auto 0.6 % (0-2); Eosinophils Absolute Auto 100 /uL (0-450); Eosinophils Percent Auto 3.1 % (2-4); Hematocrit 35.2 % (36-46); Hemoglobin 12.3 g/dL (12.0-16.0); Lymphocytes Absolute Auto 1400 /uL (1100-4500); Mean Corpuscular Hemoglobin 31.2 PG (26-34); Mean Corpuscular Volume 89.2 fL (80-100); Monocytes Absolute Auto 400 /uL (0-900); Monocytes Percent Auto 15.5 % (3-14); Neutrophils Absolute Auto 900 /uL (1500-7000); Neutrophils Percent Auto 32.8 % (50-75); Platelet Count 177 X10^3/uL (150-400); Red Blood Cell Count 3.95 X10^6/uL (4.0-5.2); Red Cell Distribution Width 13.4 % (11.6-14.8); White Blood Cell Count 2.8 X10^3/uL (4.5-11.0)
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
[2021-05-01 05:29] LABS: Alanine Aminotransferase 21 IU/L (<35); Albumin 4.5 g/dL (3.5-5.0); Albumin Globulin Ratio 1.5 (1.0-2.8); Alkaline Phosphatase 72 U/L (38-126); Aspartate Aminotransferase 24 IU/L (14-36); BUN Creatinine Ratio 12.1 (6-22); Bilirubin Total 0.7 mg/dL (0.2-1.3); Blood Urea Nitrogen 7 mg/dL (7-17); Calcium 9.8 mg/dL (8.4-10.2); Carbon Dioxide 29 mmol/L (22-32); Chloride 95 mmol/L (98-107); Estimated Glomerular Filt Rate > 60.0 mL/min (>60); Glucose 92 mg/dL (70-100); HEMOLYSIS 18 (0-50); Lipase 43 U/L (23-300); Potassium 3.9 mmol/L (3.4-5.1); Sodium 129 mmol/L (137-145); Total Protein 7.5 g/dL (6.3-8.2)
[2021-05-01] MEDS: SODIUM CHLORIDE 0.9% 1,000 ML 1000 ML IV (05:56)
[2021-05-01] MEDS: KETOROLAC 30 MG/ML VIAL 15 MG IV (05:56)
[2021-05-01 06:06] VITALS: PULSE 60; O2SAT 98
[2021-05-01 06:30] VITALS: PULSE 63; O2SAT 98
[2021-05-01 07:05] VITALS: PULSE 71; O2SAT 100
[2021-05-01 07:30] VITALS: PULSE 69; O2SAT 100
--- NOTE | 2021-05-01 07:47 | DI.CT.S_ITS ---
PROCEDURE: CT ABDOMEN PELVIS W CON INDICATIONS: severe pain TECHNIQUE: After the administration of oral and IV contrast, axial sections were acquired from the lung bases to the pubic symphysis. Coronal and sagittal reformats were performed. For radiation dose reduction, the following was used: automated exposure control, adjustment of mA and/or kV according to patient size. COMPARISON: [facility], CT, CT CHEST WO/W CON, 12/07/2020, 10:58. [facility], CT, CT ABDOMEN PELVIS WITH CONTRAST, 10/05/2020, 17:08. FINDINGS: Image quality: Excellent. Lung bases: There is mild dependent atelectasis bilaterally. Heart: Heart is normal in size. ABDOMEN: Liver: No mass lesion. Gallbladder: Within normal limits without gallstones. Biliary ducts: No biliary ductal dilatation. Pancreas: Unremarkable. Spleen: Normal in size. Adrenal Glands: No adrenal nodules. Kidneys and Ureters: No hydronephrosis. Stomach and Bowel: Stomach and small bowel loops are normal in caliber and wall thickness. The appendix is not discretely well visualized but there are no pericecal inflammatory changes to suggest appendicitis. A large amount of colonic stool is demonstrated throughout the colon with associated colonic distention. No wall thickening or pericolonic fat stranding. Peritoneum: There is a small amount of nonspecific free fluid within the pelvis. No free air. Ventral Wall: No hernia. Abdominal Nodes: No retroperitoneal or mesenteric adenopathy by size criteria. Vessels: Aorta and inferior vena cava are normal in size. There is mild swirling of the central mesenteric vessels and mesenteric fat. PELVIS: Pelvic Organs: A surgical clip is noted in the left pelvis which may be associated with tubal ligation. Bladder: Unremarkable. Pelvic Nodes: No enlarged lymph nodes. Miscellaneous: No inguinal hernias are seen. Bones: Visualized osseous structures demonstrate no suspicious focal lesions. IMPRESSION: 1. Mild swirling of the central mesenteric vessels and fat without evidence of bowel obstruction. The findings are nonspecific but may reflect select a mild internal hernia. 2. Large amount of colonic stool suggestive of constipation. 3. Small amount of intraperitoneal free fluid is nonspecifc but likely reactive. Dictated by: King Reece M.D. on 05/01/2021 at 8:10 Approved by: King Reece M.D. on 05/01/2021 at 8:18
[2021-05-01 09:20] VITALS: BP 141/64; PULSE 69; O2SAT 100
== END 2021-05-01 09:21 | disposition home or self-care (01) ==
PROVIDERS: Emergency Medicine; Emergency Provider Emergency Medicine; PCP Nurse Practitioner Family
DX: R07.89 Other chest pain (principal); R10.13 Epigastric pain; R10.12 Left upper quadrant pain; Z87.891 Personal history of nicotine dependence
CPT/HCPCS: 74177; 80053; 81001; 83690; 85025; 96361; 96374; 99283; 99284; J1885

== ENCOUNTER 2021-06-28 16:28 | Emergency (ER) | payer OTHER, MEDICAID, SELFPAY ==
[2020-12-27 22:36] VITALS: BMI 20.9
[2021-06-28] VITALS (8 sets, daily range): BP systolic 118–159; BP diastolic 58–84; PULSE 63–74; RESP 15–23; TEMP 36.7; O2SAT 96–100; BMI 20.8
[2021-06-28 17:34] LABS: Add Manual Diff / Slide Review NO; Basophils Absolute Auto 0 /uL (0-100); Basophils Percent Auto 0.6 % (0-2); Eosinophils Absolute Auto 100 /uL (0-450); Hematocrit 33.4 % (36-46); Hemoglobin 11.5 g/dL (12.0-16.0); Lymphocytes Absolute Auto 2100 /uL (1100-4500); Lymphocytes Percent Auto 46.2 % (25-40); Mean Corpuscular HGB Conc 34.5 % (30-36); Mean Corpuscular Hemoglobin 30.8 PG (26-34); Mean Corpuscular Volume 89.3 fL (80-100); Monocytes Absolute Auto 300 /uL (0-900); Monocytes Percent Auto 6.4 % (3-14); Neutrophils Absolute Auto 2000 /uL (1500-7000); Neutrophils Percent Auto 44.8 % (50-75); Platelet Count 210 X10^3/uL (150-400); Red Blood Cell Count 3.74 X10^6/uL (4.0-5.2); Red Cell Distribution Width 13.5 % (11.6-14.8); White Blood Cell Count 4.5 X10^3/uL (4.5-11.0)
[2021-06-28 17:43] LABS: Alanine Aminotransferase 11 IU/L (<35); Albumin 4.5 g/dL (3.5-5.0); Albumin Globulin Ratio 1.7 (1.0-2.8); Alkaline Phosphatase 68 U/L (38-126); Aspartate Aminotransferase 17 IU/L (14-36); BUN Creatinine Ratio 10.9 (6-22); Bilirubin Total 0.4 mg/dL (0.2-1.3); Blood Urea Nitrogen 7 mg/dL (7-17); Carbon Dioxide 25 mmol/L (22-32); Chloride 91 mmol/L (98-107); Estimated Glomerular Filt Rate > 60.0 mL/min (>60); Globulin 2.6 g/dL (1.7-4.1); Glucose 93 mg/dL (70-100); HEMOLYSIS < 15 (0-50); Lipase 188 U/L (23-300); Potassium 4.1 mmol/L (3.4-5.1); Sodium 127 mmol/L (137-145); Total Protein 7.1 g/dL (6.3-8.2)
--- NOTE | 2021-06-28 17:59 | DI.RAD.S_ITS ---
PROCEDURE: XR CHEST 1V INDICATIONS: chest pain TECHNIQUE: One view of the chest was acquired. COMPARISON: [facility], CR, XR CHEST 1V, 12/27/2020, 15:58. FINDINGS: Surgical changes and devices: None. Lungs and pleura: Lungs are clear. No pleural effusions or pneumothorax. Mediastinum: Mediastinal contours appear normal. Heart size is normal. Bones and chest wall: Chronic right 9th rib fractures stable in appearance. No suspicious bony lesions. Overlying soft tissues appear unremarkable. IMPRESSION: No acute cardiopulmonary disease process. Dictated by: Janice Palmer MD, PhD on 06/28/2021 at 18:30 Approved by: Janice Palmer MD, PhD on 06/28/2021 at 18:30
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
--- NOTE | 2021-06-28 18:27 | DI.CT.S_ITS ---
PROCEDURE: CT ABDOMEN PELVIS W CON INDICATIONS: RLQ/middle abd pain, n/v/d, hx appy TECHNIQUE: After the administration of intravenous contrast, axial sections acquired from the lung bases to the pubic symphysis. Coronal and sagittal reformats were performed. For radiation dose reduction, the following was used: automated exposure control, adjustment of mA and/or kV according to patient size. COMPARISON: [facility], CT, CT ABDOMEN PELVIS W CON, 05/01/2021, 7:29. FINDINGS: Image quality: Excellent. Lung bases: Unremarkable. Heart: No significant findings. ABDOMEN: Liver: Mild, diffuse fatty infiltration of the liver. Gallbladder: Unremarkable. Biliary ducts: Unremarkable. Pancreas: Unremarkable. Spleen: Unremarkable. Adrenal Glands: Unremarkable. Kidneys and Ureters: Unremarkable. Stomach and Bowel: Moderate amount of stool noted throughout the colon. Peritoneum: No abnormal intraperitoneal fluid. No free air. Ventral Wall: No hernias. Abdominal Nodes: No retroperitoneal or mesenteric adenopathy by size criteria. Vessels: Aorta and inferior vena cava are normal in size. PELVIS: Pelvic Organs: Surgical clip in the left pelvis possibly related to tubal ligation is stable. Bladder: Unremarkable. Pelvic Nodes: No enlarged lymph nodes. Miscellaneous: No hernias are seen. Bones: Spine degenerative disc disease and facet arthropathy. IMPRESSION: Moderate colonic fecal loading suggestive of constipation. No free intraperitoneal fluid or air. No dilated loops of bowel. Hepatic steatosis. Dictated by: Janice Palmer MD, PhD on 06/28/2021 at 19:41 Approved by: Janice Palmer MD, PhD on 06/28/2021 at 19:45
[2021-06-28 18:41] LABS: Creatine Kinase 72 U/L (30-135); Magnesium 1.7 mg/dL (1.6-2.3)
[2021-06-28 18:54] LABS: Troponin I < 0.012 ng/mL (0.01-0.034)
[2021-06-28] MEDS: ONDANSETRON 4 MG/2 ML INJ IV (18:55)
[2021-06-28] MEDS: KETOROLAC 30 MG/ML VIAL IV (18:55)
[2021-06-28] MEDS: ONDANSETRON 4 MG ODT PREPACK 1 BOTTLE MISC (20:39)
== END 2021-06-28 20:47 | disposition home or self-care (01) ==
PROVIDERS: Emergency Medicine; Emergency Provider Emergency Medicine; PCP Nurse Practitioner Family
DX: R10.31 Right lower quadrant pain (principal); R06.02 Shortness of breath; R07.9 Chest pain, unspecified; R11.2 Nausea with vomiting, unspecified; K92.1 Melena
CPT/HCPCS: 36415; 71045; 74177; 80053; 81003; 81025; 82550; 83690; 83735; 84484; 85025; 93005; 93010; 96374; 96375; 99284; J1885; J2405; Q9967

== ENCOUNTER 2021-07-03 16:54 | Emergency (ER) | payer OTHER, MEDICAID, SELFPAY ==
[2020-12-27 22:36] VITALS: BMI 20.9
[2021-07-03] VITALS (11 sets, daily range): BP systolic 139–152; BP diastolic 68–87; PULSE 56–74; RESP 15–24; O2SAT 98–100
--- NOTE | 2021-07-03 17:04 | DI.RAD.S_ITS ---
PROCEDURE: XR CHEST 1V INDICATIONS: chest pain TECHNIQUE: One view of the chest was acquired. COMPARISON: [facility], CR, XR CHEST 1V, 06/28/2021, 18:05. FINDINGS: Surgical changes and devices: None. Lungs and pleura: Lungs are clear. No pleural effusions or pneumothorax. Mediastinum: Mediastinal contours appear normal. Heart size is normal. Bones and chest wall: No suspicious bony lesions. Age-appropriate bony degenerative changes are seen. Overlying soft tissues appear unremarkable. IMPRESSION: Portable chest within normal limits. Dictated by: Jensen Chacon M.D. on 07/03/2021 at 16:28 Approved by: Jensen Chacon M.D. on 07/03/2021 at 16:28
[2021-07-03 17:31] LABS: Add Manual Diff / Slide Review NO; Basophils Absolute Auto 0 /uL (0-100); Basophils Percent Auto 0.8 % (0-2); Eosinophils Absolute Auto 0 /uL (0-450); Eosinophils Percent Auto 1.4 % (2-4); Hemoglobin 13.2 g/dL (12.0-16.0); Lymphocytes Absolute Auto 1400 /uL (1100-4500); Mean Corpuscular HGB Conc 34.6 % (30-36); Mean Corpuscular Hemoglobin 30.6 PG (26-34); Mean Corpuscular Volume 88.3 fL (80-100); Monocytes Absolute Auto 200 /uL (0-900); Monocytes Percent Auto 7.1 % (3-14); Neutrophils Absolute Auto 1800 /uL (1500-7000); Neutrophils Percent Auto 50.7 % (50-75); Platelet Count 223 X10^3/uL (150-400); Red Cell Distribution Width 13.8 % (11.6-14.8); White Blood Cell Count 3.5 X10^3/uL (4.5-11.0)
[2021-07-03 17:35] LABS: Alanine Aminotransferase 12 IU/L (<35); Albumin 5.2 g/dL (3.5-5.0); Albumin Globulin Ratio 1.7 (1.0-2.8); Alkaline Phosphatase 75 U/L (38-126); Aspartate Aminotransferase 24 IU/L (14-36); BUN Creatinine Ratio 9.2 (6-22); Bilirubin Total 0.5 mg/dL (0.2-1.3); Blood Urea Nitrogen 7 mg/dL (7-17); Calcium 9.7 mg/dL (8.4-10.2); Carbon Dioxide 24 mmol/L (22-32); Chloride 94 mmol/L (98-107); Creatine Kinase 97 U/L (30-135); Estimated Glomerular Filt Rate > 60 mL/min (>60); Glucose 79 mg/dL (70-100); HEMOLYSIS < 15 (0-50); Lipase 56 U/L (23-300); Magnesium 1.8 mg/dL (1.6-2.3); Potassium 3.9 mmol/L (3.4-5.1); Sodium 131 mmol/L (137-145); Total Protein 8.2 g/dL (6.3-8.2)
[2021-07-03 17:47] LABS: Troponin I < 0.012 ng/mL (0.01-0.034)
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
--- NOTE | 2021-07-03 18:43 | DI.US.S_ITS ---
PROCEDURE: US ABDOMEN LIMITED INDICATIONS: RUQ PAIN TECHNIQUE: Real-time scanning was performed of the abdominal and retroperitoneal organs, with image documentation. COMPARISON: None. FINDINGS: Liver: Liver is normal in size and homogeneous in echotexture. Gallbladder: Gallbladder is normal in sonographic appearance without gallstones, gallbladder wall thickening, pericholecystic fluid, or abnormal sonographic Schreiber's. Biliary ducts: Intrahepatic bile ducts are non-dilated. Extrahepatic bile duct caliber measures 3 mm. Normal is 6-7 mm or less in diameter, or 10 mm or less post-cholecystectomy. Pancreas: Visualized portions of the pancreas are sonographically normal. IMPRESSION: Right upper quadrant ultrasound without acute sonographic abnormalities. Dictated by: Farshad Vergara M.D. on 07/03/2021 at 20:09 Approved by: Farshad Vergara M.D. on 07/03/2021 at 20:11
[2021-07-03] MEDS: KETOROLAC 30 MG/ML VIAL IV (18:46)
[2021-07-03] MEDS: SODIUM CHLORIDE 0.9% 1,000 ML 1000 ML IV (21:07)
[2021-07-03] MEDS: PANTOPRAZOLE 40 MG VIAL IV (21:07)
== END 2021-07-03 22:23 | disposition home or self-care (01) ==
PROVIDERS: Emergency Medicine; Emergency Provider Emergency Medicine; PCP Nurse Practitioner Family
DX: R10.13 Epigastric pain (principal); R07.89 Other chest pain
CPT/HCPCS: 36415; 71045; 76705; 80053; 82550; 83690; 83735; 84484; 85025; 93005; 93010; 96374; 96375; 99284; C9113; J1885

== ENCOUNTER → 2021-11-15 13:10 | Outpatient (CLI) | payer OTHER, MEDICAID, SELFPAY ==
[2020-12-27 22:36] VITALS: BMI 20.9
[2021-11-15 13:56] LABS: Add Manual Diff / Slide Review NO; Basophils Absolute Auto 0 /uL (0-100); Basophils Percent Auto 0.7 % (0-2); Eosinophils Absolute Auto 100 /uL (0-450); Eosinophils Percent Auto 1.6 % (2-4); Hematocrit 37.5 % (36-46); Hemoglobin 12.9 g/dL (12.0-16.0); Lymphocytes Absolute Auto 1500 /uL (1100-4500); Lymphocytes Percent Auto 39.2 % (25-40); Mean Corpuscular HGB Conc 34.4 % (30-36); Mean Corpuscular Hemoglobin 30.8 PG (26-34); Mean Corpuscular Volume 89.4 fL (80-100); Monocytes Absolute Auto 300 /uL (0-900); Monocytes Percent Auto 7.7 % (3-14); Neutrophils Absolute Auto 1900 /uL (1500-7000); Neutrophils Percent Auto 50.8 % (50-75); Platelet Count 231 X10^3/uL (150-400); Red Blood Cell Count 4.19 X10^6/uL (4.0-5.2); Red Cell Distribution Width 14.4 % (11.6-14.8); White Blood Cell Count 3.8 X10^3/uL (4.5-11.0)
[2021-11-15 14:18] LABS: Alanine Aminotransferase 15 IU/L (<35); Albumin 4.4 g/dL (3.5-5.0); Albumin Globulin Ratio 1.7 (1.0-2.8); Alkaline Phosphatase 83 U/L (38-126); Aspartate Aminotransferase 26 IU/L (14-36); BUN Creatinine Ratio 10.9 (6-22); Bilirubin Total 0.7 mg/dL (0.2-1.3); Blood Urea Nitrogen 11 mg/dL (7-17); Calcium 9.4 mg/dL (8.4-10.2); Carbon Dioxide 24 mmol/L (22-32); Chloride 93 mmol/L (98-107); Estimated Glomerular Filt Rate > 60 mL/min (>60); Globulin 2.6 g/dL (1.7-4.1); Glucose 72 mg/dL (70-100); HEMOLYSIS < 15 (0-50); Lipase 69 U/L (23-300); Potassium 4.9 mmol/L (3.4-5.1); Sodium 128 mmol/L (137-145)
== END ==
PROVIDERS: PCP Nurse Practitioner Family; Referring Provider Physician Assistant; Visit Provider Physician Assistant
DX: R10.13 Epigastric pain (principal)
CPT/HCPCS: 36415; 80053; 83690; 85025

== ENCOUNTER → 2021-11-22 13:39 | Outpatient (CLI) | payer OTHER, MEDICAID, SELFPAY ==
[2020-12-27 22:36] VITALS: BMI 20.9
--- NOTE | 2021-11-22 | DI.CT.S_ITS ---
PROCEDURE: CT ABDOMEN W CON INDICATIONS: Right upper quadrant pain TECHNIQUE: After the administration of oral and intravenous contrast, 5 mm thick sections acquired from the diaphragms to the iliac crests. 5 mm thick coronal and sagittal reformats were acquired. For radiation dose reduction, the following was used: automated exposure control, adjustment of mA and/or kV according to patient size. COMPARISON: None. FINDINGS: Image quality: Excellent. Lung bases: Lingular scarring. Solid organs: Liver is unremarkable. Gallbladder is under distended. No biliary ductal dilation. Spleen is nonenlarged. No pancreatic ductal dilation. No adrenal nodules. No hydronephrosis. Peritoneum and bowel: Grossly distended stomach. The proximal duodenum is a also mildly distended. The angle between the SMA and the aorta is about 20 degrees. The distal duodenum is relatively underdistended. No small bowel obstruction in the abdomen. There is also large colonic stool burden. No free fluid. There is some reflux of contrast into the distal esophagus. Nodes and vessels: Mild atherosclerotic calcifications. Bones: Spondylosis. Miscellaneous: No ventral hernias. IMPRESSION: Distended stomach and decreased angle between the SMA and the aorta, with mildly dilated proximal duodenum and under distended distal duodenum. These can serve as imaging signs of SMA syndrome in the appropriate clinical context. There is also suspected constipation. Dictated by: Star Asif M.D. on 11/22/2021 at 16:32 Approved by: Star Asif M.D. on 11/22/2021 at 16:38
== END ==
PROVIDERS: Referring Provider Physician Assistant; Visit Provider Physician Assistant
DX: R10.11 Right upper quadrant pain (principal)
CPT/HCPCS: 74160; Q9967

== ENCOUNTER → 2021-11-26 08:25 | Outpatient (CLI) | payer OTHER, MEDICAID, SELFPAY ==
[2020-12-27 22:36] VITALS: BMI 20.9
--- NOTE | 2021-11-26 08:34 | DI.NM.S_ITS ---
PROCEDURE: NM HIDA WITH CCK PHARMACEUTICAL: 5.5 mCi Tc-99m mebrofenin IV; 1.1 mcg CCK IV. INDICATIONS: Right upper quadrant pain TECHNIQUE: Following intravenous administration of Tc-99m mebrofenin, sequential anterior abdominal images were obtained. To evaluate the contractile response of the gallbladder in response to Cholecystokinin (CCK), sincalide (0.02 ?g/kg) was administered by slow intravenous infusion approximately 60 minutes after the administration of the radiopharmaceutical. Sequential imaging was continued for 30 minutes after the start of CCK infusion. Gallbladder ejection fraction was calculated. COMPARISON: [facility], CT, CT ABDOMEN W CON, 11/22/2021, 15:14. [facility], US, US ABDOMEN LIMITED, 07/03/2021, 19:34. FINDINGS: Biliary scan: There is normal tracer uptake and excretion by the liver. There is normal visualization of the intrahepatic ducts, common bile duct, and gallbladder. There is normal tracer transit into the duodenum. CCK stimulation: There is normal contractile response of the gallbladder to CCK infusion. The calculated gallbladder ejection fraction is 65%; normal values are above 35%. IMPRESSION: 1. Normal filling of gallbladder. No evidence for acute cholecystitis. 2. Normal contractile response of gallbladder to CCK stimulation. 3. The gallbladder is small during the entire examination. Dictated by: Tiffanie Dominique M.D. on 11/26/2021 at 12:04 Approved by: Tiffanie Dominique M.D. on 11/26/2021 at 12:17
[2021-11-26 09:20] LABS: BUN Creatinine Ratio 16.8 (6-22); Blood Urea Nitrogen 16 mg/dL (7-17); Calcium 8.6 mg/dL (8.4-10.2); Carbon Dioxide 28 mmol/L (22-32); Chloride 103 mmol/L (98-107); Estimated Glomerular Filt Rate > 60 mL/min (>60); Glucose 81 mg/dL (70-100); HEMOLYSIS 24 (0-50); Potassium 4.8 mmol/L (3.4-5.1); Sodium 135 mmol/L (137-145)
== END ==
PROVIDERS: Referring Provider Physician Assistant; Visit Provider Physician Assistant
DX: R10.11 Right upper quadrant pain (principal); K86.1 Other chronic pancreatitis
CPT/HCPCS: 36415; 78227; 80048; A9537; J2805

== ENCOUNTER 2022-02-08 17:49 | Emergency (ER) | payer OTHER, MEDICAID, SELFPAY ==
[2020-12-27 22:36] VITALS: BMI 20.9
[2022-02-08 18:10] VITALS: BP 121/77; PULSE 91; RESP 19; TEMP 36.7; O2SAT 98; BMI 18.8
[2022-02-08 19:16] LABS: Add Manual Diff / Slide Review NO; Basophils Absolute Auto 0 /uL (0-100); Basophils Percent Auto 0.8 % (0-2); Eosinophils Absolute Auto 100 /uL (0-450); Eosinophils Percent Auto 2.9 % (2-4); Hematocrit 39.1 % (36-46); Hemoglobin 13.1 g/dL (12.0-16.0); Lymphocytes Absolute Auto 1900 /uL (1100-4500); Lymphocytes Percent Auto 49.3 % (25-40); Mean Corpuscular HGB Conc 33.6 % (30-36); Mean Corpuscular Hemoglobin 30.3 PG (26-34); Mean Corpuscular Volume 90.1 fL (80-100); Monocytes Absolute Auto 300 /uL (0-900); Monocytes Percent Auto 7.7 % (3-14); Neutrophils Absolute Auto 1500 /uL (1500-7000); Neutrophils Percent Auto 39.3 % (50-75); Platelet Count 208 X10^3/uL (150-400); Red Blood Cell Count 4.34 X10^6/uL (4.0-5.2); Red Cell Distribution Width 13.4 % (11.6-14.8); White Blood Cell Count 3.9 X10^3/uL (4.5-11.0)
[2022-02-08 19:20] VITALS: PULSE 83; O2SAT 99
[2022-02-08 19:22] VITALS: BP 132/67; PULSE 74; O2SAT 98
[2022-02-08 19:25] LABS: Alanine Aminotransferase 17 IU/L (<35); Albumin 4.5 g/dL (3.5-5.0); Albumin Globulin Ratio 1.4 (1.0-2.8); Alkaline Phosphatase 88 U/L (38-126); Aspartate Aminotransferase 23 IU/L (14-36); BUN Creatinine Ratio 16.2 (6-22); Bilirubin Total 0.6 mg/dL (0.2-1.3); Blood Urea Nitrogen 11 mg/dL (7-17); Calcium 9.4 mg/dL (8.4-10.2); Carbon Dioxide 24 mmol/L (22-32); Chloride 99 mmol/L (98-107); Estimated Glomerular Filt Rate > 60 mL/min (>60); Globulin 3.2 g/dL (1.7-4.1); Glucose 84 mg/dL (70-100); HEMOLYSIS < 15 (0-50); Lipase 100 U/L (23-300); Potassium 3.9 mmol/L (3.4-5.1); Sodium 133 mmol/L (137-145); Total Protein 7.7 g/dL (6.3-8.2)
[2022-02-08 19:30] VITALS: BP 128/67; PULSE 69; O2SAT 99
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
--- NOTE | 2022-02-08 19:41 | DI.CT.S_ITS ---
PROCEDURE: CT ABDOMEN PELVIS W CON INDICATIONS: LUQ TECHNIQUE: After the administration of intravenous contrast, axial sections acquired from the lung bases to the pubic symphysis. Coronal and sagittal reformats were performed. For radiation dose reduction, the following was used: automated exposure control, adjustment of mA and/or kV according to patient size. COMPARISON: [facility], CT, CT ABDOMEN PELVIS W CON, 06/28/2021, 18:49. [facility], CT, CT ABDOMEN PELVIS W CON, 05/01/2021, 7:29. FINDINGS: Image quality: Excellent. Lung bases: Unremarkable. Heart: No significant findings. ABDOMEN: Liver: Unremarkable. Gallbladder: Unremarkable. Biliary ducts: Unremarkable. Pancreas: Unremarkable. Spleen: Unremarkable. Adrenal Glands: Unremarkable. Kidneys and Ureters: Unremarkable. Stomach and Bowel: Stomach, small bowel loops, and colon are unremarkable. Colonic obstipation, right greater than left Peritoneum: No abnormal intraperitoneal fluid. No free air. Ventral Wall: No hernias. Abdominal Nodes: No retroperitoneal or mesenteric adenopathy by size criteria. Vessels: Aorta and inferior vena cava are normal in size. PELVIS: Pelvic Organs: Unremarkable. Bladder: Unremarkable. Pelvic Nodes: No enlarged lymph nodes. Miscellaneous: No hernias are seen. Bones: Unremarkable. IMPRESSION: Colonic obstipation, right greater than left. No acute inflammatory disease is found. Approved by: Logan Crockett M.D. on 02/08/2022 at 20:45
--- NOTE | 2022-02-08 19:45 | PC.NURSE ---
ambulatory to the bathroom with steady gait - clean catch UA collected from patient - cloudy yellow urine noted
--- NOTE | 2022-02-08 20:03 | PC.NURSE ---
to CT via w/c with tech
[2022-02-08] MEDS: HYDROMORPHONE 0.5 MG INJ IV (20:04)
--- NOTE | 2022-02-08 20:11 | PC.NURSE ---
returns to the ER via w/c from radiology
[2022-02-08] MEDS: PANTOPRAZOLE 40 MG VIAL IV (20:12)
[2022-02-08 20:52] LABS: Bacteria Urine Moderate (10-30); RBC Urine None Seen (0-5/HPF); Squamous Epithelial Cell Urine 5-10 /HPF (0-5/HPF); WBC Urine 10-30/HPF (0-5/HPF)
[2022-02-08 21:19] VITALS: BP 128/68; PULSE 78; RESP 16; O2SAT 98
[2022-02-08] MEDS: HYDROCODONE/ACET 5/325 PREPACK 1 BOTTLE MISC (21:41)
== END 2022-02-08 21:43 | disposition home or self-care (01) ==
PROVIDERS: Emergency Provider Emergency Medicine
DX: K27.9 Peptic ulcer, site unspecified, unspecified as acute or chronic, without hemorrhage or perforation (principal); N39.0 Urinary tract infection, site not specified; K59.00 Constipation, unspecified
CPT/HCPCS: 36415; 74177; 80053; 81003; 81015; 83690; 85025; 87086; 93005; 93010; 96374; 96375; 99284; C9113; J1170; Q9967

== ENCOUNTER 2022-05-07 10:11 | Emergency (ER) | payer OTHER, MEDICAID, SELFPAY ==
[2020-12-27 22:36] VITALS: BMI 20.9
[2022-05-07] VITALS (10 sets, daily range): BP systolic 103–131; BP diastolic 58–72; PULSE 53–74; RESP 16–18; TEMP 36.6; O2SAT 90–100
[2022-05-07 12:55] LABS: Bacteria Urine None Seen; Culture Indicated Urine Cult Not Indicated; RBC Urine None Seen (0-5/HPF); Squamous Epithelial Cell Urine None Seen (0-5/HPF); WBC Urine None Seen (0-5/HPF)
--- NOTE | 2022-05-07 14:16 | PC.NURSE ---
pt states she has been having lower back pain for 3 weeks. also been constipated for 3 weeks, has been taking miralax, doculax and a stool softener. she has been seeing a GI doctor for stomach issues. she states she stopped eating 4 days ago because she feels like everything is just stuck in there. she c/o feeling like her kidneys are hurting and she feels like she has frequency of urine. also c/o nausea, dizzy, chills, pain is 7/10 currently.
--- NOTE | 2022-05-07 15:36 | DI.CT.S_ITS ---
PROCEDURE: CT ABDOMEN PELVIS WO CON INDICATIONS: constipation vs bowel obstruc TECHNIQUE: Noncontrast 5 mm thick sections acquired from the diaphragms to the symphysis. 5 mm coronal and sagittal reformats were then performed. For radiation dose reduction, the following was used: automated exposure control, adjustment of mA and/or kV according to patient size. COMPARISON: [facility], CT, CT ABDOMEN PELVIS W CON, 02/08/2022, 19:55. FINDINGS: Image quality: Excellent. ABDOMEN: Lung bases: Lung bases are clear. Heart size is normal. Solid organs: Liver is normal in size. Gallbladder is unremarkable without calcified gallstones noted. Pancreas is normal in contours. Spleen is normal in size. No adrenal nodules. Kidneys are normal in size, without hydronephrosis or nephrolithiasis. Peritoneum and bowel: Paucity of intra-abdominal fat makes it somewhat difficult to evaluate the bowel. There is moderately large diffuse fecal debris. No dilated loops or wall thickening are identified. Unenhanced bowel loops demonstrate normal wall thickness and caliber. No free fluid or air. Nodes and vessels: No retroperitoneal or mesenteric adenopathy by size criteria. Aorta and inferior vena cava are normal in caliber. Miscellaneous: No ventral hernias. PELVIS: Genitourinary: Bladder wall thickness is normal. Miscellaneous: No inguinal hernias or adenopathy. Bones: No suspicious bony lesions. No vertebral body compression fractures. IMPRESSION: Moderately large fecal load. Dictated by: Yared Anaya M.D. on 05/07/2022 at 16:13 Approved by: Yared Anaya M.D. on 05/07/2022 at 16:16
[2022-05-07] MEDS: BISACODYL 10 MG SUPP PR (15:53)
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
[2022-05-07] MEDS: SODIUM CHLORIDE 0.9% 1,000 ML 1000 ML IV (18:28)
[2022-05-07 18:31] LABS: Add Manual Diff / Slide Review NO; Basophils Absolute Auto 100 /uL (0-100); Basophils Percent Auto 0.7 % (0-2); Eosinophils Absolute Auto 100 /uL (0-450); Eosinophils Percent Auto 0.7 % (2-4); Hematocrit 41.5 % (36-46); Hemoglobin 14.1 g/dL (12.0-16.0); Lymphocytes Absolute Auto 3800 /uL (1100-4500); Lymphocytes Percent Auto 49.5 % (25-40); Mean Corpuscular HGB Conc 34.1 % (30-36); Mean Corpuscular Volume 91.1 fL (80-100); Monocytes Absolute Auto 400 /uL (0-900); Monocytes Percent Auto 5.5 % (3-14); Neutrophils Absolute Auto 3300 /uL (1500-7000); Neutrophils Percent Auto 43.6 % (50-75); Platelet Count 289 X10^3/uL (150-400); Red Blood Cell Count 4.56 X10^6/uL (4.0-5.2); Red Cell Distribution Width 14.5 % (11.6-14.8); White Blood Cell Count 7.7 X10^3/uL (4.5-11.0)
[2022-05-07 18:46] LABS: Lactate (Lactic Acid) 2.7 mmol/L (0.7-2.1)
[2022-05-07 18:50] LABS: Alanine Aminotransferase 28 IU/L (<35); Albumin 4.8 g/dL (3.5-5.0); Albumin Globulin Ratio 1.5 (1.0-2.8); Alkaline Phosphatase 112 U/L (38-126); Aspartate Aminotransferase 34 IU/L (14-36); Bilirubin Total 0.9 mg/dL (0.2-1.3); Blood Urea Nitrogen 16 mg/dL (7-17); C-Reactive Protein Quant < 0.5 mg/dL (<1.0); Calcium 9.6 mg/dL (8.4-10.2); Carbon Dioxide 19 mmol/L (22-32); Chloride 96 mmol/L (98-107); Estimated Glomerular Filt Rate > 60 mL/min (>60); Globulin 3.1 g/dL (1.7-4.1); Glucose 65 mg/dL (70-100); HEMOLYSIS < 15 (0-50); Lipase 74 U/L (23-300); Potassium 3.6 mmol/L (3.4-5.1); Sodium 133 mmol/L (137-145); Total Protein 7.9 g/dL (6.3-8.2)
--- NOTE | 2022-05-07 19:02 | PC.NURSE ---
pt initially complaining of abdominal pain/ constipation. the pt was given a suppository. Pt had 2BMs while in ER. During BM on toilet pt became diaphoretic and light headed. RN assisted pt to room. Vitals were obtained, Nallely Crew SHIRT CREASER observed pt. EKG and iv fluids initiated. Continuing to monitor pt
--- NOTE | 2022-05-07 19:52 | PC.NURSE ---
Pt eating and drinking well. Glucose up from 60 to 69. Took an apple juice and a [place] bar for the road
[2022-05-07 19:55] LABS: Thyroid Stimulating Hormone 2.26 uIU/mL (0.47-4.68)
[2022-05-07 20:27] LABS: Reflexed Lactate in 2 Hours Y
== END 2022-05-07 19:45 | disposition home or self-care (01) ==
PROVIDERS: Emergency Provider Nurse Practitioner Critical Care Medicine
DX: K59.00 Constipation, unspecified (principal); E16.2 Hypoglycemia, unspecified; E86.0 Dehydration
CPT/HCPCS: 36415; 74176; 80053; 81003; 81015; 81025; 82962; 83605; 83690; 84443; 85025; 86140; 93005; 93010; 96360; 99284

== ENCOUNTER 2022-05-14 10:41 | Emergency (ER) | payer OTHER, MEDICAID, SELFPAY ==
[2020-12-27 22:36] VITALS: BMI 20.9
--- NOTE | 2022-05-14 10:57 | DI.RAD.S_ITS ---
PROCEDURE: XR CHEST 1V INDICATIONS: chest pain TECHNIQUE: One view of the chest was acquired. COMPARISON: [facility], CR, XR CHEST 1V, 07/03/2021, 17:04. [facility], CR, XR CHEST 1V, 06/28/2021, 18:05. FINDINGS: Surgical changes and devices: None. Lungs and pleura: Lungs are clear. No pleural effusions or pneumothorax. Mediastinum: Mediastinal contours appear normal. Heart size is normal. Bones and chest wall: No suspicious bony lesions. Overlying soft tissues appear unremarkable. IMPRESSION: No acute cardiopulmonary process. Dictated by: aKvon Del Toro M.D. on 05/14/2022 at 11:29 Approved by: Kavon Del Toro M.D. on 05/14/2022 at 11:32
[2022-05-14 11:05] VITALS: BP 117/70; PULSE 67; TEMP 37; BMI 18.0
[2022-05-14 11:31] LABS: Add Manual Diff / Slide Review NO; Basophils Absolute Auto 0 /uL (0-100); Basophils Percent Auto 1.1 % (0-2); Eosinophils Absolute Auto 100 /uL (0-450); Eosinophils Percent Auto 2.4 % (2-4); Hematocrit 40.3 % (36-46); Hemoglobin 13.5 g/dL (12.0-16.0); Lymphocytes Absolute Auto 1600 /uL (1100-4500); Lymphocytes Percent Auto 46.6 % (25-40); Mean Corpuscular HGB Conc 33.4 % (30-36); Mean Corpuscular Hemoglobin 30.7 PG (26-34); Mean Corpuscular Volume 91.9 fL (80-100); Monocytes Absolute Auto 200 /uL (0-900); Monocytes Percent Auto 7.1 % (3-14); Neutrophils Absolute Auto 1500 /uL (1500-7000); Neutrophils Percent Auto 42.8 % (50-75); Platelet Count 218 X10^3/uL (150-400); Red Blood Cell Count 4.38 X10^6/uL (4.0-5.2); Red Cell Distribution Width 14.4 % (11.6-14.8); White Blood Cell Count 3.5 X10^3/uL (4.5-11.0)
[2022-05-14 11:38] LABS: Prothrombin Time 10.9 SECONDS (10.1-12.7)
[2022-05-14 11:40] LABS: D Dimer < 215 ng/ml (<500)
[2022-05-14 11:48] LABS: Alanine Aminotransferase 34 IU/L (<35); Albumin 4.6 g/dL (3.5-5.0); Albumin Globulin Ratio 1.5 (1.0-2.8); Alkaline Phosphatase 80 U/L (38-126); Aspartate Aminotransferase 33 IU/L (14-36); BUN Creatinine Ratio 18.2 (6-22); Bilirubin Total 0.4 mg/dL (0.2-1.3); Blood Urea Nitrogen 12 mg/dL (7-17); C-Reactive Protein Quant < 0.5 mg/dL (<1.0); Calcium 9.4 mg/dL (8.4-10.2); Carbon Dioxide 29 mmol/L (22-32); Chloride 99 mmol/L (98-107); Creatine Kinase 33 U/L (30-135); Estimated Glomerular Filt Rate > 60 mL/min (>60); Globulin 3.1 g/dL (1.7-4.1); Glucose 94 mg/dL (70-100); HEMOLYSIS < 15 (0-50); Lipase 78 U/L (23-300); Potassium 4.2 mmol/L (3.4-5.1); Sodium 137 mmol/L (137-145); Total Protein 7.7 g/dL (6.3-8.2)
[2022-05-14 11:52] LABS: Erythrocyte Sedimentation Rate 6 MM/HR (0-20)
[2022-05-14 11:53] LABS: NT-proBNP (BNP-Adult 18+) 92 pg/mL (<125)
[2022-05-14 11:56] LABS: Troponin I < 0.012 ng/mL (0.01-0.034)
[2022-05-14 12:01] LABS: Procalcitonin < 0.03 ng/mL (<0.5)
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
--- NOTE | 2022-05-14 14:39 | DI.US.S_ITS ---
PROCEDURE: US ABDOMEN LIMITED INDICATIONS: EPIGASTRIC PAIN RADIATING TO BACK. POST PRANDIAL. TECHNIQUE: Real-time focused scanning was performed of the abdomen, with image documentation. COMPARISON: [facility], , US ABDOMEN LIMITED, 07/03/2021, 19:34. FINDINGS: The liver is normal in size and demonstrates no focal lesions. The main portal vein demonstrates normal size and demonstrates normal appearing, hepatopetal flow. No findings of gallstones or sludge are seen. The gallbladder wall is not thickened, measuring 3 mm or less. No specific pericholecystic fluid is seen. The sonographic Schreiber sign is negative. There is no biliary dilatation, the common bile duct measures 3-4 mm. No significant pancreatic abnormality is seen on these images. Trace right kidney pelviectasis can be seen. IMPRESSION: The gallbladder demonstrates a normal sonographic appearance. No biliary dilatation is seen. Mac trace right kidney pelviectasis noted. Dictated by: Jensen Chacon M.D. on 05/14/2022 at 14:08 Approved by: Jensen Chacon M.D. on 05/14/2022 at 14:09
[2022-05-14 14:45] VITALS: PULSE 55; RESP 35; O2SAT 96
[2022-05-14] MEDS: PANTOPRAZOLE 40 MG VIAL IV (14:50)
[2022-05-14] MEDS: MAG HYDROX/ALUMINUM/SIMETH SUS 20 ML, LIDOCAINE VISCOUS 2% 15 ML PO (14:51)
[2022-05-14] MEDS: SODIUM CHLORIDE 0.9% 1,000 ML 1000 ML IV (14:53)
[2022-05-14 15:00] VITALS: PULSE 57; RESP 37; O2SAT 99
[2022-05-14 15:01] VITALS: BP 123/58; PULSE 53; RESP 25; O2SAT 99
[2022-05-14] MEDS: KETOROLAC 30 MG/ML VIAL 15 MG IV (15:08)
[2022-05-14 15:30] VITALS: BP 141/75; PULSE 50; RESP 21; O2SAT 100
[2022-05-14 16:00] VITALS: BP 134/79; PULSE 59; RESP 21; O2SAT 99
== END 2022-05-14 16:13 | disposition home or self-care (01) ==
PROVIDERS: Emergency Provider Emergency Medicine
DX: R10.13 Epigastric pain (principal); R07.9 Chest pain, unspecified
CPT/HCPCS: 36415; 71045; 76705; 80053; 81003; 82550; 83690; 83880; 84145; 84484; 85025; 85379; 85610; 85651; 86140; 93005; 96361; 96374; 96375; 99284; C9113; J1885

== ENCOUNTER → 2022-09-10 10:18 | Outpatient (CLI) | payer OTHER, MEDICAID, SELFPAY ==
[2020-12-27 22:36] VITALS: BMI 20.9
[2022-09-10 13:07] LABS: Hematocrit 41.4 % (36-46); Hemoglobin 14.2 g/dL (12.0-16.0); Mean Corpuscular HGB Conc 34.4 % (30-36); Mean Corpuscular Hemoglobin 31.3 PG (26-34); Mean Corpuscular Volume 91.1 fL (80-100); Platelet Count 249 X10^3/uL (150-400); Red Blood Cell Count 4.54 X10^6/uL (4.0-5.2); Red Cell Distribution Width 13.8 % (11.6-14.8); White Blood Cell Count 4.3 X10^3/uL (4.5-11.0)
[2022-09-10 13:39] LABS: Alanine Aminotransferase 21 IU/L (<35); Albumin 4.9 g/dL (3.5-5.0); Albumin Globulin Ratio 1.5 (1.0-2.8); Alkaline Phosphatase 96 U/L (38-126); Amylase 74 U/L (30-110); Aspartate Aminotransferase 27 IU/L (14-36); BUN Creatinine Ratio 16.9 (6-22); Bilirubin Total 0.4 mg/dL (0.2-1.3); Blood Urea Nitrogen 14 mg/dL (7-17); Calcium 9.5 mg/dL (8.4-10.2); Carbon Dioxide 28 mmol/L (22-32); Chloride 100 mmol/L (98-107); Cholesterol 213 mg/dL (140-199); Estimated Glomerular Filt Rate > 60 mL/min (>60); Globulin 3.3 g/dL (1.7-4.1); Glucose 97 mg/dL (70-100); HDL Cholesterol 70 mg/dL (40-60); HEMOLYSIS < 15 (0-50); LDL Cholesterol Calculated 119 mg/dL (<100); Lipase 90 U/L (23-300); Potassium 4.4 mmol/L (3.4-5.1); Sodium 136 mmol/L (137-145); Total Protein 8.2 g/dL (6.3-8.2); Triglycerides 120 mg/dL (35-150)
[2022-09-10 14:03] LABS: TSH w/ Reflex to FT4 0.55 uIU/mL (0.47-4.68)
[2022-09-10 14:26] LABS: Appearance Urine UA CLEAR; Bilirubin Urine UA NEGATIVE (NEGATIVE); Color Urine UA YELLOW; Glucose Urine UA NEGATIVE (Negative); Ketones Urine UA NEGATIVE (NEGATIVE); Leukocyte Esterase Urine UA NEGATIVE (NEGATIVE); Nitrite Urine UA NEGATIVE (Negative); Occult Blood Urine UA NEGATIVE (Negative); Protein Urine UA NEGATIVE (Negative); Specific Gravity Urine UA <=1.005 (1.000-1.035); Urobilinogen Urine UA 0.2 E.U./dL (0.2)
[2022-09-10 14:29] LABS: pH Urine UA 6.5 (4.5-8.0)
[2022-09-10 14:37] LABS: Bacteria Urine None Seen; Culture Indicated Urine Cult Not Indicated; RBC Urine 0-1/HPF (0-5/HPF); Squamous Epithelial Cell Urine 0-1 /HPF (0-5/HPF); WBC Urine 0-1/HPF (0-5/HPF)
== END ==
PROVIDERS: PCP Internal Medicine; Referring Provider Internal Medicine; Visit Provider Internal Medicine
DX: E04.1 Nontoxic single thyroid nodule (principal); E78.2 Mixed hyperlipidemia; I31.39 Other pericardial effusion (noninflammatory); K85.90 Acute pancreatitis without necrosis or infection, unspecified
CPT/HCPCS: 36415; 80053; 80061; 81001; 82150; 83690; 84443; 85027

== ENCOUNTER → 2023-06-21 13:35 | Outpatient (CLI) | payer OTHER, SELFPAY ==
[2020-12-27 22:36] VITALS: BMI 20.9
== END ==
PROVIDERS: PCP Internal Medicine; Visit Provider Nurse Practitioner Family
DX: R10.9 Unspecified abdominal pain (principal); N94.9 Unspecified condition associated with female genital organs and menstrual cycle
CPT/HCPCS: 87086; 87210

== ENCOUNTER → 2023-06-22 06:40 | Outpatient (CLI) | payer OTHER, SELFPAY ==
[2020-12-27 22:36] VITALS: BMI 20.9
--- NOTE | 2023-06-22 06:41 | DI.CT.S_ITS ---
PROCEDURE: CT LUNG LOW DOSE SCREENING INDICATIONS: Lung cancer screening TECHNIQUE: Noncontrast 2.0-2.5 mm thick sections acquired from the pulmonary apices to the posterior costophrenic angles. 7 mm thick axial MIP, and 5 mm coronal and sagittal reformats were then acquired. For radiation dose reduction, the following was used: automated exposure control, adjustment of mA and/or kV according to patient size. COMPARISON: [facility], CT, CT CHEST WO/W CON, 12/07/2020, 10:58. [facility], CT, CT ANGIO CHEST ABDOMEN PELVIS, 08/08/2022, 20:19. FINDINGS: Image quality: Diagnostic. Lower Neck: No enlarged lymph nodes. Thyroid: No thyroid nodules which require sonographic follow up, per consensus guidelines. Axillae: No enlarged lymph nodes. Chest Wall: Unremarkable. Bones: Unremarkable. Lungs and Pleura: Lungs are hyperinflated. Mild centrilobular emphysema. No pneumothorax or pleural effusions. Subpleural nodules are seen in right lung. Index nodules: -4 mm; right upper lobe posterior; series 3, image 103, unchanged from 08/08/2022. - 2 mm; right middle lobe; series 3 image 189. - 3 mm; right lower lobe; series 3, image 269. Heart: Heart size is normal. No pericardial effusion. Thoracic Vessels: The aorta and pulmonary arteries demonstrate normal size. Mediastinum and Tessa: No enlarged lymph nodes. Esophagus: No wall thickening. No hiatal hernia. Upper Abdomen: Visualized upper abdomen solid organs and bowel loops appear normal. IMPRESSION: Small subpleural nodules are present in right lung. LUNG-RADS 2; continue annual screening CT in 12 months. Dictated by: Tiffanie Dominique M.D. on 06/22/2023 at 8:37 Approved by: Tiffanie Dominique M.D. on 06/22/2023 at 9:02
== END ==
PROVIDERS: PCP Internal Medicine; Referring Provider Internal Medicine; Visit Provider Internal Medicine
DX: Z12.2 Encounter for screening for malignant neoplasm of respiratory organs (principal); F17.210 Nicotine dependence, cigarettes, uncomplicated; R91.8 Other nonspecific abnormal finding of lung field; J43.2 Centrilobular emphysema
CPT/HCPCS: 71271

== ENCOUNTER → 2023-07-08 11:48 | Outpatient (CLI) | payer OTHER, SELFPAY ==
[2020-12-27 22:36] VITALS: BMI 20.9
[2023-07-08 13:42] LABS: BUN Creatinine Ratio 32.5 (6-22); Blood Urea Nitrogen 26 mg/dL (7-17); Calcium 9.1 mg/dL (8.4-10.2); Carbon Dioxide 28 mmol/L (22-32); Chloride 105 mmol/L (98-107); Estimated Glomerular Filt Rate > 60 mL/min (>60); Glucose 96 mg/dL (70-100); HEMOLYSIS < 15 (0-50); Sodium 136 mmol/L (137-145)
== END ==
PROVIDERS: PCP Internal Medicine; Referring Provider Internal Medicine; Visit Provider Internal Medicine
DX: N28.9 Disorder of kidney and ureter, unspecified (principal)
CPT/HCPCS: 36415; 80048

== ENCOUNTER → 2024-01-21 13:24 | Outpatient (CLI) | payer OTHER, SELFPAY ==
[2020-12-27 22:36] VITALS: BMI 20.9
== END ==
LOC: RESP 13:24
PROVIDERS: PCP Internal Medicine; Referring Provider Internal Medicine; Visit Provider Internal Medicine
DX: J44.9 Chronic obstructive pulmonary disease, unspecified (principal); R94.2 Abnormal results of pulmonary function studies; Z72.0 Tobacco use
CPT/HCPCS: 94060; 94726; 94729

== ENCOUNTER → 2024-05-12 09:02 | Outpatient (CLI) | payer OTHER, SELFPAY ==
[2020-12-27 22:36] VITALS: BMI 20.9
[2024-05-12 10:07] LABS: BUN Creatinine Ratio 24.1 (6-22); Blood Urea Nitrogen 20 mg/dL (7-17); Calcium 9.6 mg/dL (8.4-10.2); Carbon Dioxide 27 mmol/L (22-32); Chloride 104 mmol/L (98-107); Cholesterol 228 mg/dL (140-199); Estimated Glomerular Filt Rate > 60 mL/min (>60); Glucose 87 mg/dL (70-100); HDL Cholesterol 84 mg/dL (40-60); HEMOLYSIS < 15 (0-50); LDL Cholesterol Calculated 128 mg/dL (<100); Potassium 4.5 mmol/L (3.4-5.1); Sodium 139 mmol/L (137-145); Triglycerides 82 mg/dL (35-150)
[2024-05-12 10:36] LABS: TSH w/ Reflex to FT4 1.26 uIU/mL (0.47-4.68)
== END ==
LOC: LAB 09:02
PROVIDERS: PCP Internal Medicine; Referring Provider Internal Medicine; Visit Provider Internal Medicine
DX: E04.1 Nontoxic single thyroid nodule (principal); E78.2 Mixed hyperlipidemia
CPT/HCPCS: 36415; 80048; 80061; 84443